=== PATIENT | female | born 1965 | race African-American/Black ===

== ENCOUNTER 2021-10-25 07:44 | Outpatient (CLI) | payer BC ==
[2021-10-25 16:01] LABS: SARS-CoV-2 PCR by NAA Not Detected (NotDetected)
== END 2021-10-25 07:45 | disposition home or self-care (01) ==
LOC: CSHLAB 07:44
PROVIDERS: ATTEND Internal Medicine Gastroenterology
DX: Z20.822 Contact with and (suspected) exposure to COVID-19 (principal); Z12.11 Encounter for screening for malignant neoplasm of colon
CPT/HCPCS: U0003; U0005

== ENCOUNTER 2021-10-28 06:53 | Day surgery (SDC) | payer BC ==
[2021-10-25 08:40] VITALS: BMI 39.2
[~2021-10-28 06:53] MED LIST: HYDROmorphone 0.5 MG/0.5 ML SYRINGE ONE; Lidocaine 2% MPF 10 ML AMP (For Epidural Use) ONE; PROPOFOL 20 ML ONE
[2021-10-28] MEDS ORDERED: Lidocaine 1% MPF 2 ML VIAL ONE (07:55)
[2021-10-28] MEDS ORDERED: Midazolam HCl 2 mg/2 ml Vial ONE (08:50)
[2021-10-28] MEDS ORDERED: PROPOFOL 20 ML ONE (09:27)
== END 2021-10-28 10:02 | disposition home or self-care (01) ==
LOC: CSHSDC 06:53
PROVIDERS: ATTEND Internal Medicine Gastroenterology
PROC: 0DBL8ZZ Excision of Transverse Colon, Via Natural or Artificial Opening Endoscopic (ICD-10-PCS; principal; 2021-10-28)
PROC: 0DBC8ZZ Excision of Ileocecal Valve, Via Natural or Artificial Opening Endoscopic (ICD-10-PCS; principal; 2021-10-28)
DX: Z12.11 Encounter for screening for malignant neoplasm of colon (principal); D12.3 Benign neoplasm of transverse colon; K57.30 Diverticulosis of large intestine without perforation or abscess without bleeding; K64.9 Unspecified hemorrhoids; I10 Essential (primary) hypertension; E66.9 Obesity, unspecified; G47.30 Sleep apnea, unspecified; Z80.0 Family history of malignant neoplasm of digestive organs
CPT/HCPCS: 88305; J1170; J2250; J2704

== ENCOUNTER 2023-02-09 09:37 | Outpatient (CLI) | payer BC | END 2023-02-09 09:38 | disposition home or self-care (01) | LOC: CSHMAMMO 09:37 | PROVIDERS: ATTEND Student in an Organized Health Care Education/Training Program | DX: Z12.31 Encounter for screening mammogram for malignant neoplasm of breast (principal) | CPT/HCPCS: 77063; 77067 ==